=== PATIENT | male | born 1980 | race Caucasian/White ===

== ENCOUNTER 2019-01-05 19:27 | Outpatient (CLI) | payer MEDICAID | END 2019-01-05 19:28 | disposition critical access hospital (66) | LOC: EMS 19:27 | PROVIDERS: ATTEND Surgery | DX: M79.673 Pain in unspecified foot (principal) | CPT/HCPCS: A0425; A0429 ==

== ENCOUNTER 2019-01-05 19:44 | Emergency (ER) | payer MEDICAID ==
[2019-01-05 19:48] VITALS: BP 134/78
--- NOTE | 2019-01-05 20:26 | ED Physician Documentation ---
History of Present Illness - Stated complaint Stated Complaint: R FOOT BLISTER - Chief complaint Chief Complaint: General - History obtained from History obtained from: Patient - History of Present Illness Timing: Other (He is homeless, he really does not like to just sit around during the day so he walks around all day, it has been cold and wet and he is wearing occlusive rubber boots. His feet are starting to break down. Pain is not really bad and he is up-to-date on tetanus.) Review of Systems Constitutional: denies: Fever, Chills Cardiac: reports: Reviewed and negative Respiratory: reports: Reviewed and negative PD PAST MEDICAL HISTORY - Past Medical History Past Medical History: No - Past Surgical History Past Surgical History: No - Present Medications Home Medications: Ambulatory Orders Medication Instructions Recorded Confirmed No Known Home Medications 01/05/19 01/05/19 - Allergies Allergies/Adverse Reactions: Allergies Allergy/AdvReac Type Severity Reaction Status Date / Time No Known Drug Allergies Allergy Verified 01/05/19 19:48 - Social History Does the pt smoke?: Yes Smoking Status: Current every day smoker Does the pt drink ETOH?: Yes Does the pt have substance abuse?: Yes Substance Use and Type: Marijuana - Immunizations Immunizations are current?: Yes PD ED PE NORMAL - Vitals Vital signs reviewed: Yes - General General: Alert and oriented X 3, No acute distress - Extremities Extremities: Other (On the bottoms of the feet there are a few closed and a few open blisters. There is really no sign of infection.) - Neuro Neuro: Alert and oriented X 3, Normal speech Results - Vitals Vitals: Vital Signs - 24 hr 01/05/19 19:45 Temperature 36.5 C Heart Rate 59 L Respiratory 16 Rate Blood Pressure 134/78 H O2 Saturation 97 Oxygen O2 Source Room air PD MEDICAL DECISION MAKING - ED course ED course: His feet were cleansed here and he was given warm socks and will have him sleep in the lobby tonight so he can keep his shoes off so if he can air out. He was advised that basically the treatment for this is just finding a place where he can take his shoes off where it is clean and dry and he understands and will hang out in the hospital tonight and take the bus in the morning. Departure - Departure Disposition: 01 Home, Self Care Clinical Impression: Blister (nonthermal), left foot, initial encounter, Blister (nonthermal), right foot, initial encounter, Homeless single person Condition: Good Record reviewed to determine appropriate education?: Yes Instructions: ED Blister Comments: As discussed you do not need any specific treatment other than just trying to keep your feet clean and dry. Return for new or worsening symptoms. Your blood pressure was elevated today on check into the emergency department. This does not mean that you have hypertension, it is a common phenomenon to come to the emergency department and have elevated blood pressure. I recommend that you see your primary care physician within the week to have it rechecked when you are feeling better.
== END 2019-01-05 20:35 | disposition home or self-care (01) ==
LOC: ED 19:44
DX: S90.822A Blister (nonthermal), left foot, initial encounter (principal); S90.821A Blister (nonthermal), right foot, initial encounter; X31.XXXA Exposure to excessive natural cold, initial encounter; Z59.0 Homelessness; F17.200 Nicotine dependence, unspecified, uncomplicated; R03.0 Elevated blood-pressure reading, without diagnosis of hypertension
CPT/HCPCS: 99282; 99283